=== PATIENT | female | born 1995 | race Caucasian/White ===

== ENCOUNTER 2021-04-04 13:28 | Emergency (ER) | payer BC ==
[2021-04-04 13:46] VITALS: BP 107/68; PULSE 64; TEMP 98.4
[2021-04-04] MEDS ORDERED: LIDOCAINE 2.5%/PRILOCAINE 2.5% 30 GRAM TUBE TP STA (13:46)
[2021-04-04] MEDS ORDERED: LIDOCAINE 2.5%/PRILOCAINE 2.5% (5 Gram/TUBE) TP ONE (13:46)
== END 2021-04-04 14:30 | disposition home or self-care (01) ==
LOC: FER 13:28
DX: S61.101A Unspecified open wound of right thumb with damage to nail, initial encounter (principal)
CPT/HCPCS: 99283-25